=== PATIENT | female | born 1945 | race Two or more races ===

== ENCOUNTER 2024-12-18 16:00 | Inpatient (IN) | payer OTHER, SELFPAY ==
[2024-12-18 16:02] VITALS: BP 159/82; PULSE 127; RESP 16; TEMP 37.4; O2SAT 91
[2024-12-18 16:04] VITALS: BMI 27.3
--- NOTE | 2024-12-18 16:20 | EX.ED.DYSGE1 ---
HPI <DOM Welch - Last Filed: 12/18/24 18:14> History of Present Illness Chief Complaint: Abd Pain Narrative Narrative: 79-year-old female with no significant past medical history developed chills yesterday and a few hours ago developed a fever of 102 ?F, abdominal cramping, and nausea and vomiting x 1. She has been mildly constipated recently but is passing gas. She took Metamucil and Pepto-Bismol and had a small bowel movement this morning. She is here with her family and arrived to the [place] 1 [place] ago from [place]. She took an antipyretic called Crocin about 1 hour ago. She takes vitamins but no prescription medications. She has had umbilical hernia repair x 2, appendectomy, and hysterectomy. PFSH <DOM Welch - Last Filed: 12/18/24 18:14> PFS Medical History (Updated 12/18/24 @ 18:14 by DOM Welch) Hernia Allergy/AdvReac Type Severity Reaction Status Date / Time Penicillins Allergy Intermediate Rash Verified 12/18/24 16:02 Surgical History (Updated 12/18/24 @ 16:22 by Donna Garza) H/O: hysterectomy History of appendectomy Social History Smoking Status: Never smoker ROS <DOM Welch - Last Filed: 12/18/24 18:14> ROS ED ROS Narrative Constitutional: Positive for fever, chills, malaise. CVS: Negative for chest pain. Respiratory: Negative for shortness of breath, cough. GI: Positive for abdominal pain, nausea, vomiting, constipation. : Negative for dysuria, hematuria or frequency. EXAM <DOM Welch - Last Filed: 12/18/24 18:14> Physical Exam Narrative Exam Narrative: CONST: Patient sitting in no acute distress. EYES: Normal inspection. NECK: Normal inspection. RESP: No respiratory distress, CTAB. CVS: Tachycardic with regular rhythm, no murmur, no gallop. ABD: Soft with generalized tenderness and guarding, nondistended, no hepatosplenomegaly. SKIN: Color normal, no rash, warm, dry, intact. EXTREMITIES: Normal appearance, no pedal edema. NEURO: Alert and answering questions appropriately. PSYCH: Normal affect. Const Vital Signs: 12/18/24 16:02 12/18/24 17:34 Temperature 99.3 F H 101.2 F H Temperature Source Temporal Oral Pulse Rate 127 H 126 H Respiratory Rate 16 20 H Blood Pressure 159/82 H 151/76 H Blood Pressure Mean 107 101 Pulse Ox 91 Oxygen Delivery Method Room Air Room Air <Dr. Librado Perez DO - Last Filed: 12/18/24 18:31> Physical Exam Const Vital Signs: 12/18/24 16:02 12/18/24 17:34 Temperature 99.3 F H 101.2 F H Temperature Source Temporal Oral Pulse Rate 127 H 126 H Respiratory Rate 16 20 H Blood Pressure 159/82 H 151/76 H Blood Pressure Mean 107 101 Pulse Ox 91 Oxygen Delivery Method Room Air Room Air MDM <DOM Welch - Last Filed: 12/18/24 18:14> [facility] Narrative Medical decision making narrative: History gathered from: Patient and her son and [id number] Differential includes but not limited to diverticulitis, abscess, perforation, cholecystitis, UTI, viral illness 79-year-old female presents with fever, chills, abdominal pain, nausea and vomiting, and constipation over the last day. She appears well and nontoxic. BP 159/82, HR 127, RR 16, 91% on room air, and temperature of 99.3 ?F. She took a Tylenol equivalent antipyretic about an hour ago. Her cardiopulmonary exam is unremarkable except for tachycardia. Abdomen is soft with generalized tenderness without peritoneal signs. Labs show WBC of 13.0, sodium 131, glucose 207, normal CO2 and anion gap. Liver profile and lipase are normal. Lactic 1.5. CT shows acute uncomplicated sigmoid diverticulitis. CXR and viral swab for COVID/flu/RSV is negative. Initially she was given IV fluids, morphine, and Zofran Bright disease she had taken a Tylenol equivalent prior to arrival for fever). She became febrile again and is still tachycardic in the 120s so I ordered a second liter of IV fluids and Motrin. She clinically meet sepsis criteria. I discussed the case with the hospitalist and he recommended IV meropenem. Patient was admitted in stable condition. Lab Data Attestation: I reviewed the patient's lab results. Labs: Laboratory Results - last 24 hr 12/18/24 12/18/24 16:37 17:55 WBC 13.0 H RBC 5.29 Hgb 13.5 Hct 40.3 MCV 76.2 L MCH 25.5 L MCHC 33.5 RDW Std Deviation 38.8 RDW Coeff of Farzaneh 14.0 Plt Count 234 MPV 9.0 Immature Gran % (Auto) 0.500 Neut % (Auto) 87.4 H Lymph % (Auto) 8.5 L [place] % (Auto) 3.2 Eos % (Auto) 0.2 Baso % (Auto) 0.2 Absolute Neuts (auto) 11.3 H Absolute Lymphs (auto) 1.10 Nucleated RBC % 0 Sodium 131 L Potassium 4.3 Chloride 97 L Carbon Dioxide 21.1 Anion Gap 13 BUN 8 Creatinine 0.69 L Estim Creat Clear Calc 45.85 L Est GFR (MDRD) Non-Af 87 BUN/Creatinine Ratio 12.0 Glucose 207 H Lactic Acid 1.5 Calcium 9.3 Total Bilirubin 0.61 AST 24 ALT 15 Alkaline Phosphatase 87 Total Protein 7.6 Albumin 4.2 Globulin 3.4 Albumin/Globulin Ratio 1.2 Lipase 15 Urine Color Yellow Urine Clarity Sl. Cloudy Urine pH 7.0 Ur Specific [place] 1.005 Urine Protein 15 H Urine Glucose (UA) 250 H Urine Ketones Negative Urine Occult Blood 10 H Urine Nitrite Negative Urine Bilirubin Negative Urine Urobilinogen Normal Ur Leukocyte Esterase Negative Urine RBC 0-5 SEEN Urine WBC 0 SEEN Ur Squamous Epith Cells 0-5 SEEN Amorphous Sediment 1+ PHOS Urine Bacteria 0 SEEN Urine Mucus 0 SEEN Radiography Diagnostic Testing: Clinical Impression(s) from Imaging Studies Abdomen/Pelvis CT 12/18/24 16:55 IMPRESSION: Acute sigmoid diverticulitis, without pneumoperitoneum or drainable fluid collection. Reading Location: [facility] Chest X-Ray 12/18/24 16:55 IMPRESSION: No Acute Findings. Reading Location: [facility] ED attending interpretation of 1-view chest x-ray shows normal heart size, no acute infiltrate. <Dr. Librado Perez, DO - Last Filed: 12/18/24 18:31> MDM MDM Narrative Medical decision making narrative: History gathered from: Patient and her son and [id number] Differential includes but not limited to diverticulitis, abscess, perforation, cholecystitis, UTI, viral illness 79-year-old female presents with fever, chills, abdominal pain, nausea and vomiting, and constipation over the last day. She appears well and nontoxic. BP 159/82, HR 127, RR 16, 91% on room air, and temperature of 99.3 ?F. She took a Tylenol equivalent antipyretic about an hour ago. Her cardiopulmonary exam is unremarkable except for tachycardia. Abdomen is soft with generalized tenderness without peritoneal signs. Labs show WBC of 13.0, sodium 131, glucose 207, normal CO2 and anion gap. Liver profile and lipase are normal. Lactic 1.5. CT shows acute uncomplicated sigmoid diverticulitis. CXR and viral swab for COVID/flu/RSV is negative. Initially she was given IV fluids, morphine, and Zofran Bright disease she had taken a Tylenol equivalent prior to arrival for fever). She became febrile again and is still tachycardic in the 120s so I ordered a second liter of IV fluids and Motrin. She clinically meet sepsis criteria. I discussed the case with the hospitalist and he recommended IV meropenem. Patient was admitted in stable condition. Supervisory Physician Note Patient was seen and examined with the Advanced Practice Provider. Nursing notes and vital signs have been reviewed. Pertinent old records have been reviewed. I agree with the essential elements of the NIGEL's history, physical exam, assessment, and plan. The differential diagnosis and management options were discussed with the NIGEL. I participated in determining and agree with the management, procedures, final impression and disposition as documented. See changes noted by me. Please see addendum or separate note for any additional details. 79-year-old female with no significant past medical history presents for evaluation of flulike symptoms and abdominal pain. Onset of symptoms approximately 2 days ago. Endorses fever, body aches, abdominal pain, nausea, vomiting. Endorses constipation but states that she did have a recent bowel movement after bowel regiment. Originally from [place]. Previous history of surgeries. Gen: A&O x3, NAD Head: Normocephalic, atraumatic Eyes: No sclera icterus, conjunctiva clear ENT: Mildly dry mucous membranes Neck: Trachea midline, No JVD CV: tachycardic, regular rhythm, no murmurs, no peripheral edema Resp: Lungs CTA BL, no w/r/c GI: Abd soft, mildly distended, mild tenderness to palpation diffusely, no r/r/g Musc: Full ROM, no deformity Skin: Warm, dry Neuro: Alert, oriented, grossly intact, sensation intact Psych: Cooperative, appropriate mood and affect On arrival, patient is hypertensive, tachycardic, almost febrile at 99.3 ?F. She did just take an antipyretic. Sepsis/infectious workup ordered including CT abdomen pelvis. NS bolus, morphine, Zofran ordered. CBC with leukocytosis of 13. No anemia. CMP consistent with dehydration without ROMEL. Patient has hyperglycemia of 207. Patient not a diabetic. Lactic acid unremarkable. No transaminitis. Lipase unremarkable. UA negative for UTI. Patient now febrile at 101.2 ?F. She remains tachycardic in the 120s. Motrin and another NS bolus ordered. Chest x-ray was personally reviewed interpreted by me, ED physician. No pneumonia, effusion, cardiomegaly, pneumothorax. CT abdomen pelvis shows acute sigmoid diverticulitis without pneumoperitoneum or drainable abscess. Levaquin and Flagyl ordered. COVID, flu, RSV negative. Despite patient having uncomplicated diverticulitis, I do think that she will require admission given her vital signs and abdominal pain. Patient was discussed with the hospitalist, patient will be admitted. Recommended meropenem, antibiotics were changed. Patient will be admitted to the hospital. Impression: 1. Sigmoid diverticulitis 2. Fever 3. Hyperglycemia Lab Data Labs: Laboratory Results - last 24 hr 12/18/24 12/18/24 16:37 17:55 WBC 13.0 H RBC 5.29 Hgb 13.5 Hct 40.3 MCV 76.2 L MCH 25.5 L MCHC 33.5 RDW Std Deviation 38.8 RDW Coeff of [place]zaneh 14.0 Plt Count 234 MPV 9.0 Immature Gran % (Auto) 0.500 Neut % (Auto) 87.4 H Lymph % (Auto) 8.5 L [place] % (Auto) 3.2 Eos % (Auto) 0.2 Baso % (Auto) 0.2 Absolute Neuts (auto) 11.3 H Absolute Lymphs (auto) 1.10 Nucleated RBC % 0 Sodium 131 L Potassium 4.3 Chloride 97 L Carbon Dioxide 21.1 Anion Gap 13 BUN 8 Creatinine 0.69 L Estim Creat Clear Calc 45.85 L Est GFR (MDRD) Non-Af 87 BUN/Creatinine Ratio 12.0 Glucose 207 H Lactic Acid 1.5 Calcium 9.3 Total Bilirubin 0.61 AST 24 ALT 15 Alkaline Phosphatase 87 Total Protein 7.6 Albumin 4.2 Globulin 3.4 Albumin/Globulin Ratio 1.2 Lipase 15 Urine Color Yellow Urine Clarity Sl. Cloudy Urine pH 7.0 Ur Specific [place] 1.005 Urine Protein 15 H Urine Glucose (UA) 250 H Urine Ketones Negative Urine Occult Blood 10 H Urine Nitrite Negative Urine Bilirubin Negative Urine Urobilinogen Normal Ur Leukocyte Esterase Negative Urine RBC 0-5 SEEN Urine WBC 0 SEEN Ur Squamous Epith Cells 0-5 SEEN Amorphous Sediment 1+ PHOS Urine Bacteria 0 SEEN Urine Mucus 0 SEEN Radiography Diagnostic Testing: Clinical Impression(s) from Imaging Studies Abdomen/Pelvis CT 12/18/24 16:55 IMPRESSION: Acute sigmoid diverticulitis, without pneumoperitoneum or drainable fluid collection. Reading Location: [facility] Chest X-Ray 12/18/24 16:55 IMPRESSION: No Acute Findings. Reading Location: [facility] Discharge Plan Triage Chief Complaint: Abd Pain ED Midlevel Provider: Solange Greenfield ED Provider: Librado Perez Dx/Rx/DC Orders Clinical Impression: Sigmoid diverticulitis, Fever Primary Care Provider: Care Physician,No Primary
[2024-12-18] MEDS: Morphine 4 MG/ML Syringe IV (16:34)
[2024-12-18] MEDS: Ondansetron 4 MG/2 ML Vial IV (16:34)
[2024-12-18] MEDS: 0.9% Normal Saline (1000mL) 1,000 ML 999 ML IV ×2 (16:36→20:01)
--- NOTE | 2024-12-18 16:55 | RAD_ITS ---
PROCEDURE: CHEST 1 VIEW (PORTABLE) 12/18/2024 REASON FOR EXAM: FEVER TECHNIQUE: Frontal view of the chest. COMPARISON: None FINDINGS: Hardware: None Heart: Cardiac and mediastinal contours are stable. Lungs: No focal consolidation. No pneumothorax. No pleural effusion. Bones: The bones are unremarkable. Other: RAD/Chest 1 View (Portable) IMPRESSION: No Acute Findings. Reading Location: [facility]
--- NOTE | 2024-12-18 16:55 | CT_ITS ---
PROCEDURE: ABDOMEN/PELVIS W IV CONT ONLY 12/18/2024 REASON FOR EXAM: ABDOMINAL PAIN TECHNIQUE: Abdomen and pelvis CT with intravenous contrast. Coronal and Sagittal reconstruction series were provided. PATIENT PREPARATION: Per protocol ORAL CONTRAST TYPE: None. AMOUNT: mL CONTRAST: Omnipaque 350 VOLUME: 100 mL Not Provided Gauge IV One or more dose reduction techniques were used (e.g., Automated exposure control, adjustment of the mA and/or kV according to patient size, use of iterative reconstruction technique. COMPARISON: None FINDINGS: Lung bases: Mild bibasilar atelectasis. Liver: Mild hepatic steatosis. No focal lesion. Gallbladder: No ductal dilation. No cholelithiasis or wall thickening. Spleen: Normal size. Pancreas: Normal size without evidence of mass surrounding inflammation or ductal dilation. Adrenals: Mild bilateral adrenal thickening. Kidneys: Normal renal sizes. No hydronephrosis. Bladder: Urinary bladder is unremarkable. Reproductive Organs: No pelvic mass. Bowel: Stomach is unremarkable. No bowel dilation. Colonic diverticulosis, with wall thickening, submucosal hyperemia and surrounding mesenteric soft tissue stranding and edema involving the sigmoid colon (series 601, image 63), compatible with acute sigmoid diverticulitis. No pneumoperitoneum or drainable fluid collection. Appendix: The appendix is not identified. There is no inflammatory process identified in the right lower quadrant to suggest appendicitis. Lymph nodes: No suspicious lymph node enlargement. Vasculature: The abdominal aorta and IVC are normal. Mild atherosclerotic calcification. Peritoneum / Retroperitoneum: No pneumoperitoneum. No ascites. Bones: Degenerative changes of the spine. Moderate scoliosis. CT/Abdomen/Pelvis W IV Cont ONLY IMPRESSION: Acute sigmoid diverticulitis, without pneumoperitoneum or drainable fluid colle ction. Reading [facility]
[2024-12-18 17:11] LABS: Absolute Neutrophil Count 11.3 X10^3/uL (2.0-7.7); Basophil# 0.03 X10^3/uL; Basophil% 0.2 % (0-1); Eosinophil# 0.03 X10^3/uL; Eosinophils% 0.2 % (0-5); Hematocrit 40.3 % (37-47); Hemoglobin 13.5 g/dL (12.0-15.0); Lymphocyte % 8.5 % (19-41); Mean Corp Hgb Conc 33.5 g/dL (32-36); Mean Corpuscular Hgb 25.5 pg (27.0-32.0); Mean Corpuscular Volume 76.2 fL (81-99); Monocyte# 0.41 X10^3/uL; Monocyte% 3.2 % (0-10); NRBC Flagged by Analyzer 0 % (0-5); Neutrophil # 11.34 X10^3/uL (2.7-7.7); Neutrophil % 87.4 % (47-70); Platelet Count 234 K/mm3 (150-450); RBC Distribution Width SD 38.8 fl (35.1-43.9); Red Blood Count 5.29 M/mm3 (4.2-5.4)
[2024-12-18 17:33] LABS: ALB/GLOB Ratio 1.2 RATIO (0.9-2.4); AST(SGOT) 24 U/L (<=31); Alanine Aminotransfer ALT/SGPT 15 U/L (<=34); Albumin, Serum 4.2 g/dL (3.4-4.8); Alkaline Phosphatase 87 U/L (35-104); Anion Gap 13 (5-15); BUN 8 mg/dL (4-19); Calcium,Total 9.3 mg/dL (7.6-11.0); Carbon Dioxide 21.1 mmol/L (21.0-32.0); Chloride 97 mmol/L (98-108); Creatinine, Serum 0.69 mg/dL (0.70-1.20); EST Glomerular Filtration Rate 87 (>60); Estimated Creatinine Clearance 45.85 ml/min (50-250); Globulin 3.4 g/dL (2.2-4.2); Glucose 207 mg/dL (70-99); Lactic Acid 1.5 mmol/L (0.0-2.0); Lipase 15 U/L (13-75); Potassium 4.3 mmol/L (3.3-5.1); Protein, Total 7.6 g/dL (5.9-8.4); Sodium Level 131 mmol/L (133-145); Total Bilirubin 0.61 mg/dL (0.00-1.30)
[2024-12-18 17:34] VITALS: BP 151/76; PULSE 126; RESP 20; TEMP 38.4
[2024-12-18] MEDS: Ibuprofen 200 MG Tablet 400 MG PO (17:41)
[2024-12-18 18:06] LABS: Bacteria 0 SEEN /hpf (None Seen); Mucous, Urine 0 SEEN /hpf (<or=2+); White Blood Cells 0 SEEN /hpf (0-5)
[2024-12-18 18:09] LABS: Color, Urine Yellow (Yellow); Glucose, Dipstick 250 mg/dl (Normal); Ketone-Dipstick Negative (Negative); Leukocyte Esterase-Dipstick Negative /ul (Negative); Nitrite-Dipstick Negative (Negative); Occult Blood-Urine 10 /ul (Negative); Protein-Dipstick 15 mg/dl (Negative); Specific Gravity, Urine 1.005 (1.002-1.030); Urine Bilirubin Dipstick Negative (Negative); Urine Clarity Sl. Cloudy (Clear); Urine Urobilinogen Normal (Normal)
[2024-12-18] MEDS: metroNIDAZOLE 500 MG/100 ML BAG 100 MG IV (18:10)
[2024-12-18 18:16] LABS: Amorphous Sediment 1+ PHOS; Red Blood Cells-Urine 0-5 SEEN /hpf (0-5); Squamous Epithelial Cells - UA 0-5 SEEN /hpf (5-10)
--- NOTE | 2024-12-18 18:22 | HP.PCM.HOS_ITS ---
HPI - General General Date of Admission: 12/18/24 Date of Service: 12/18/24 Chief Complaint: Left lower abdominal pain x 2 days HPI Rosie BENDER, is a 79 F who presents to the emergency room at [facility] with complaints of left lower quadrant abdominal pain x 1 day. She denies any blood in her stool, she denies any diarrhea. Patient did endorse nausea and vomiting and fever. Labs obtained in the emergency room showed an elevated white blood cell count at 13,000, chemistry profile was remarkable for glucose of 207, sodium was slightly low at 131. Imaging studies included a chest x-ray which showed no acute process. CT of the abdomen and pelvis was obtained with IV contrast only there was noted to be acute sigmoid diverticulitis without pneumoperitoneum or drainable fluid collection. Patient was tachycardic and was running a temperature of 101.2 Patient will be admitted for acute diverticulitis, she will be given IV fluids and IV antibiotics-I have elected to place her on meropenem, she was given Flagyl and Levaquin in the emergency room. [facility] Medical History (Updated 12/18/24 @ 18:14 by DOM eWlch) Hernia Allergy/AdvReac Type Severity Reaction Status Date / Time Penicillins Allergy Intermediate Rash Verified 12/18/24 16:02 Surgical History (Updated 12/18/24 @ 16:22 by Donna Garza) H/O: hysterectomy History of appendectomy Social History Smoking Status: Never smoker ROS Constitutional Constitutional: Reports fever(s); Denies anorexia, change in weight, chills, night sweats or weakness Eyes Eyes: Denies blurry vision, change in eye color, change in vision, discharge from eye(s) or eye pain Cardiovascular Cardiovascular: Denies chest pain, claudication, dyspnea on exertion, edema or palpitations Respiratory/Chest Respiratory/Chest: Denies cough, hemoptysis, shortness of breath at rest or shortness of breath with exertion Gastrointestinal Gastrointestinal: Reports abdominal pain, nausea and vomiting; Denies constipation, diarrhea, dyspepsia, hematemesis, hematochezia, loose stools or melena Genitourinary Genitourinary: Denies dysuria, hematuria, urinary frequency, urinary hesitancy, urinary incontinence or urinary urgency Musculoskeletal Musculoskeletal: Denies back pain, joint pain, joint stiffness, joint swelling, myalgias or neck pain Neurologic Neurologic: Denies abnormal gait, abnormal speech, dizziness, focal weakness, headache(s), loss of vision, numbness, other visual disturbances, paresthesias, syncope or tingling Psychiatric Psychiatric: Denies anxiety, cognitive impairment, depression, irritability, mood swings or suicidal ideation Endocrine Endocrinology: Denies change in body appearance, cold intolerance, excessive sweating, heat intolerance, polydipsia or polyuria Hematologic/Lymphatic Hematologic/Lymphatic: Denies none, anemia, easy bleeding, easy bruising or lymphadenopathy Allergic/Immunologic Allergic/Immunologic: Denies rhinitis, urticaria, eczemia or asthma Vital Signs Vital Signs Vital Signs: 12/18/24 16:02 12/18/24 17:34 Temperature 99.3 F H 101.2 F H Temperature Source Temporal Oral Pulse Rate 127 H 126 H Respiratory Rate 16 20 H Blood Pressure 159/82 H 151/76 H Blood Pressure Mean 107 101 Pulse Ox 91 Oxygen Delivery Method Room Air Room Air Weight Weight: 63.4 kg Body Mass Index (BMI) 27.3 Physical Exam Const alert, oriented x3 and healthy appearing Constitutional Narrative: Patient appears younger than her stated age, she did not appear toxic General Appearance: cooperative, well kempt and well developed Orientation / Consciousness: awake, oriented to person, oriented to place and oriented to time HEENT normocephalic, head/scalp atraumatic and moist oral mucous membranes Eyes PERRL, EOMs intact bilaterally and conjunctivae normal Neck supple, no JVD, thyroid normal and no carotid bruits General: trachea midline Resp normal respiratory effort, no retractions, no use of accessory muscles and clear to auscultation bilaterally Auscultation: Negative for rales, rhonchi or wheezes Cardio regular rate, regular rhythm, no murmurs, no rub and no gallops GI GI Narrative: Abdomen is not distended, bowel sounds are present in all 4 quadrants, no rebound abdominal tenderness was noted, patient did have left lower quadrant abdominal pain to palpation. Extremity no clubbing, cyanosis or edema Skin no rashes or lesions noted General Skin Exam: no breakdown Neuro oriented x3, CN's II-XII intact bilaterally, moves all extremities, no focal motor deficits and no sensory deficits noted Sensorium / Orientation: awake and alert Speech: speech normal Psych affect normal Results Lab / Micro Data 12/18/24 16:37 12/18/24 16:37 Labs: Laboratory Results - last 24 hr 12/18/24 16:37: WBC 13.0 H, RBC 5.29, Hgb 13.5, Hct 40.3, MCV 76.2 L, MCH 25.5 L , MCHC 33.5, RDW Std Deviation 38.8, RDW Coeff of Farzaneh 14.0, Plt Count 234, MPV 9.0, Immature Gran % (Auto) 0.500, Neut % (Auto) 87.4 H, Lymph % (Auto) 8.5 L, [place] % (Auto) 3.2, Eos % (Auto) 0.2, Baso % (Auto) 0.2, Absolute Neuts (auto) 11.3 H, Absolute Lymphs (auto) 1.10, Nucleated RBC % 0, Sodium 131 L, Potassium 4.3, Chloride 97 L, Carbon Dioxide 21.1, Anion Gap 13, BUN 8, Creatinine 0.69 L, Estim Creat Clear Calc 45.85 L, Est GFR (MDRD) Non-Af 87, BUN/Creatinine Ratio 12.0, Glucose 207 H, Lactic Acid 1.5, Calcium 9.3, Total Bilirubin 0.61, AST 24, ALT 15, Alkaline Phosphatase 87, Total Protein 7.6, Albumin 4.2, Globulin 3.4, Albumin/Globulin Ratio 1.2, Lipase 15 12/18/24 17:55: Urine Color Yellow, Urine Clarity Sl. Cloudy, Urine pH 7.0, Ur Specific [place] 1.005, Urine Protein 15 H, Urine Glucose (UA) 250 H, Urine Ketones Negative, Urine Occult Blood 10 H, Urine Nitrite Negative, Urine Bilirubin Negative, Urine Urobilinogen Normal, Ur Leukocyte Esterase Negative, Urine RBC 0-5 SEEN, Urine WBC 0 SEEN, Ur Squamous Epith Cells 0-5 SEEN, Amorphous Sediment 1+ PHOS, Urine Bacteria 0 SEEN, Urine Mucus 0 SEEN Micro: Microbiology 12/18/24 16:25 Mucosa - Nose SARS-CoV-2, Influenza & RSV (PCR) - Final Imaging Radiology Impression Abdomen/Pelvis CT 12/18/24 16:55 IMPRESSION: Acute sigmoid diverticulitis, without pneumoperitoneum or drainable fluid collection. Reading Location: [facility] Chest X-Ray 12/18/24 16:55 IMPRESSION: No Acute Findings. Reading Location: [facility] Assessment & Plan Assessment/Plan (1) Sigmoid diverticulitis: PLAN: Plan 1. Acute sigmoid diverticulitis-I believe due to the patient's age and presentation that she would benefit from admission to the hospital and given IV fluids and IV antibiotics, patient will be admitted to [facility], she will be placed on IV meropenem and given IV fluids and she will be placed on liquids only for now. #2 hyperglycemia-etiology unclear, patient denies any medical problems and takes no prescription medications. I will repeat her labs in the morning. Total clinical time spent by myself addressing the patient's medical issues, reviewing all of her data, and collaborating with patient's care team: 55 minutes Charges/Coding Visit Charges Inpatient E&M: 18886 Init Hosp L2
[2024-12-18 19:01] VITALS: BP 150/80; PULSE 124; RESP 18; TEMP 38.3; O2SAT 96
[2024-12-18 19:32] VITALS: BMI 25.5
[2024-12-18 19:52] VITALS: BP 131/67; PULSE 122; RESP 16; TEMP 37.9; O2SAT 95
[2024-12-18] MEDS: 0.9% Normal Saline (1000mL) 1,000 ML 120 ML IV (21:13)
[2024-12-18] MEDS: Heparin Injection (Vial) 5,000 UNIT/ML VIAL 5000 UNIT SC (21:17)
[2024-12-18] MEDS: Meropenem 1 GM in 0.9% Normal Saline (100mL MB+) 100 ML IV (21:22)
[2024-12-19] VITALS (8 sets, daily range): BP systolic 99–126; BP diastolic 49–78; PULSE 90–109; RESP 16–18; TEMP 36.6–38.8; O2SAT 92–95
[2024-12-19] MEDS: 0.9% Normal Saline (1000mL) 1,000 ML 120 ML IV ×2 (04:51→12:33)
[2024-12-19 06:05] LABS: Absolute Lymphocyte Count 1.34 X10^3/uL (0.83-4.51); Absolute Neutrophil Count 10.4 X10^3/uL (2.0-7.7); Basophil# 0.04 X10^3/uL; Basophil% 0.3 % (0-1); Eosinophil# 0.03 X10^3/uL; Eosinophils% 0.2 % (0-5); Hematocrit 32.8 % (37-47); Hemoglobin 10.9 g/dL (12.0-15.0); Lymphocyte # 1.34 X10^3/ul (0.83-4.51); Mean Corp Hgb Conc 33.2 g/dL (32-36); Mean Corpuscular Hgb 25.5 pg (27.0-32.0); Mean Corpuscular Volume 76.6 fL (81-99); Mean Platelet Vol. 9.1 fl (6.2-12.0); Monocyte# 0.35 X10^3/uL; Monocyte% 2.9 % (0-10); NRBC Flagged by Analyzer 0 % (0-5); Neutrophil % 85.3 % (47-70); Platelet Count 194 K/mm3 (150-450); RBC Distribution Width CV 14.2 % (11.6-14.6); RBC Distribution Width SD 39.4 fl (35.1-43.9); Red Blood Count 4.28 M/mm3 (4.2-5.4); White Blood Count 12.2 K/mm3 (4.4-11.0)
--- NOTE | 2024-12-19 06:38 | PN.HOSP_ITS ---
Reason for Visit Reason for Visit: Abdominal pain Subjective Subjective Patient states she is feeling much better. Still having some abdominal pain. Tolerating clear liquids without difficulty however still having some low-grade temps. In the emergency department Tmax was 101. Since admission Tmax has been 100.7. Patient anxious to go home. Objective Data Objective Data Vital Signs: Vital Signs Temp Pulse Resp BP Pulse Ox O2 Del Method 98.3 F 93 16 114/64 94 Room Air 12/19/24 03:17 12/19/24 03:17 12/19/24 03:17 12/19/24 03:17 12/19/24 03:17 12/19/24 03:17 Oxygen Delivery Method Room Air Weight: 61.3 kg Body Mass Index (BMI) 25.5 Intake & Output: Intake and Output for Last 24 Hours 12/17/24 12/18/24 12/19/24 23:59 23:59 23:59 Intake Total 2100 / 2200 1136 / 1136 Balance 2100 / 2200 1136 / 1136 Lab / Micro Data 12/19/24 05:35 12/19/24 05:35 Labs: Laboratory Results - last 24 hr 12/18/24 16:37: WBC 13.0 H, RBC 5.29, Hgb 13.5, Hct 40.3, MCV 76.2 L, MCH 25.5 L , MCHC 33.5, RDW Std Deviation 38.8, RDW Coeff of Farzaneh 14.0, Plt Count 234, MPV 9.0, Immature Gran % (Auto) 0.500, Neut % (Auto) 87.4 H, Lymph % (Auto) 8.5 L, [place] % (Auto) 3.2, Eos % (Auto) 0.2, Baso % (Auto) 0.2, Absolute Neuts (auto) 11.3 H, Absolute Lymphs (auto) 1.10, Nucleated RBC % 0, Sodium 131 L, Potassium 4.3, Chloride 97 L, Carbon Dioxide 21.1, Anion Gap 13, BUN 8, Creatinine 0.69 L, Estim Creat Clear Calc 45.85 L, Est GFR (MDRD) Non-Af 87, BUN/Creatinine Ratio 12.0, Glucose 207 H, Lactic Acid 1.5, Calcium 9.3, Total Bilirubin 0.61, AST 24, ALT 15, Alkaline Phosphatase 87, Total Protein 7.6, Albumin 4.2, Globulin 3.4, Albumin/Globulin Ratio 1.2, Lipase 15 12/18/24 17:55: Urine Color Yellow, Urine Clarity Sl. Cloudy, Urine pH 7.0, Ur Specific [place] 1.005, Urine Protein 15 H, Urine Glucose (UA) 250 H, Urine Ketones Negative, Urine Occult Blood 10 H, Urine Nitrite Negative, Urine Bilirubin Negative, Urine Urobilinogen Normal, Ur Leukocyte Esterase Negative, Urine RBC 0-5 SEEN, Urine WBC 0 SEEN, Ur Squamous Epith Cells 0-5 SEEN, Amorphous Sediment 1+ PHOS, Urine Bacteria 0 SEEN, Urine Mucus 0 SEEN 12/19/24 05:35: WBC 12.2 H, RBC 4.28, Hgb 10.9 L, Hct 32.8 L, MCV 76.6 L, MCH 25.5 L, MCHC 33.2, RDW Std Deviation 39.4, RDW Coeff of Farzaneh 14.2, Plt Count 194, MPV 9.1, Immature Gran % (Auto) 0.300, Neut % (Auto) 85.3 H, Lymph % (Auto) 11.0 L, [place] % (Auto) 2.9, Eos % (Auto) 0.2, Baso % (Auto) 0.3, Absolute Neuts (auto) 10.4 H, Absolute Lymphs (auto) 1.34, Nucleated RBC % 0 Micro: Microbiology 12/18/24 16:25 Mucosa - Nose SARS-CoV-2, Influenza & RSV (PCR) - Final Radiography Diagnostic Testing: Radiology Impression Abdomen/Pelvis CT 12/18/24 16:55 IMPRESSION: Acute sigmoid diverticulitis, without pneumoperitoneum or drainable fluid collection. Reading Location: [facility] Chest X-Ray 12/18/24 16:55 IMPRESSION: No Acute Findings. Reading Location: [facility] Physical Exam Const alert, oriented x3, no apparent distress, average body habitus and well nourished Constitutional Narrative: Older, , female, lying in bed, appears comfortable, son at bedside, nontoxic appearing HEENT head/scalp atraumatic and moist oral mucous membranes Head and Scalp: normocephalic Resp normal respiratory effort, no retractions, no use of accessory muscles and clear to auscultation bilaterally Auscultation: Negative for crackles, rales, rhonchi or wheezes Cardio regular rate, regular rhythm, S1 normal heart sound, S2 normal heart sound, no rub and no gallops; Negative for no murmurs Cardio Narrative: 2 out of 6 systolic murmur loudest the right upper sternal border GI normal to inspection, nondistended, normoactive bowel sounds and soft to palpation; Negative for non-tender GI Narrative: Tender left lower quadrant greater than right lower quadrant but tenderness extends across the entire lower abdomen Extremity no clubbing, cyanosis or edema Extremity Narrative: Pedal and radial pulses are 2+ Neuro oriented x3, moves all extremities and no focal motor deficits Speech: speech normal Psych Psych Narrative: Very pleasant, gracious for care Assessment & Plan Assessment/Plan (1) Fever: (2) Sigmoid diverticulitis: PLAN: Plan Acute sigmoid diverticulitis -Continue IV fluids but decrease rate to 75 cc/h from 120 -continue IV antibiotics with meropenem as patient has penicillin allergy -Would likely consider Cipro Flagyl discharge -Continue IV antiemetics -Continue IV pain medication -Continue clear liquid diet today with possible advancement depending on symptoms tomorrow to full's and then regular -No signs of perforation or abscess Fever -Secondary to the above -Fever curve appears to be improving Tachycardia -Mild -Like related to interface temperature Leukocytosis -Slowly trending down -Continue current antibiotics Microcytic anemia -Baseline is unknown -Was 13.5 on admission but has received IV fluids and currently 10.9 with no signs of obvious bleeding -His microcytic -If stabilizes would not pursue as an inpatient any further if does not may need to assess iron studies -Patient would be high risk for thalassemia Hyperglycemia -Blood sugars 181 -May be reactive -Check hemoglobin A1c -Add sliding scale every 6 hours DVT prophylaxis -Continue subcu heparin CODE STATUS -Full code verified today Charges/Coding Visit Charges Inpatient E&M: 46073 Subs Hosp L2
[2024-12-19 07:17] LABS: Anion Gap 9 (5-15); BUN 8 mg/dL (4-19); Calcium,Total 7.9 mg/dL (7.6-11.0); Carbon Dioxide 18.8 mmol/L (21.0-32.0); Chloride 109 mmol/L (98-108); EST Glomerular Filtration Rate 90 (>60); Estimated Creatinine Clearance 46.32 ml/min (50-250); Glucose 181 mg/dL (70-99); Potassium 3.8 mmol/L (3.3-5.1); Sodium Level 137 mmol/L (133-145)
[2024-12-19] MEDS: Meropenem 1 GM in 0.9% Normal Saline (100mL MB+) 100 ML IV ×2 (09:51→21:00)
[2024-12-19] MEDS: Heparin Injection (Vial) 5,000 UNIT/ML VIAL 5000 UNIT SC ×2 (09:53→20:59)
[2024-12-19] MEDS: Acetaminophen 325 MG Tablet 650 MG PO ×2 (10:47→21:00)
[2024-12-19 14:46] LABS: Hemoglobin A1c 7.6 % (<=5.6)
[2024-12-19 17:42] LABS: Bedside Glucose 147 mg/dL (74-106)
[2024-12-19] MEDS: 0.9% Normal Saline (1000mL) 1,000 ML 75 ML IV (22:24)
--- NOTE | 2024-12-19 23:15 | NURSING ---
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 Pharmacy has been notified as well as the operative supervisor. They have been unable to obtain access for this nurse. Other nurses have been helping pull medications.
[2024-12-20] VITALS (8 sets, daily range): BP systolic 132–163; BP diastolic 62–75; PULSE 101–125; RESP 16–22; TEMP 36.8–39.3; O2SAT 91–97
[2024-12-20 00:26] LABS: Bedside Glucose 139 mg/dL (74-106)
--- NOTE | 2024-12-20 02:40 | RAD_ITS ---
PROCEDURE: CHEST 1 VIEW (PORTABLE) 12/20/2024 REASON FOR EXAM: SHORTNESS OF BREATH TECHNIQUE: Frontal view of the chest. COMPARISON: 12/18/2024 FINDINGS: Patient is rotated to the right. Low lung volume study. The lungs appear clear. The cardiac and mediastinal contours appear within limits. Visualized osseous structures appear within limits. RAD/Chest 1 View (Portable) IMPRESSION: No evidence of acute disease. Reading Location: [id number]
[2024-12-20 02:59] LABS: Pro- Brain NATRIURETIC PEPTIDE 1851 pg/mL (<=1800)
[2024-12-20 03:01] LABS: Anion Gap 11 (5-15); BUN 6 mg/dL (4-19); BUN/Creat Ratio 9.3 RATIO (10-20); Calcium,Total 8.3 mg/dL (7.6-11.0); Carbon Dioxide 20.1 mmol/L (21.0-32.0); Chloride 103 mmol/L (98-108); Creatinine, Serum 0.62 mg/dL (0.70-1.20); EST Glomerular Filtration Rate 89 (>60); Estimated Creatinine Clearance 46.32 ml/min (50-250); Glucose 154 mg/dL (70-99); Potassium 3.8 mmol/L (3.3-5.1); Sodium Level 135 mmol/L (133-145)
[2024-12-20 03:25] LABS: Allen Test Positive; Base Excess -6 mmol/L (-2 to +2); Bicarbonate 18.7 mmol/L (22-26); Blood Gas Specimen Type ART; Mode Not entered; O2 Delivery Device Cannula; PO2 75 mmHG (75-100); SITE R Radial; SO2 96 % (95-99); Total Carbon Dioxide 20 mmol/L; pCO2 28.1 mmHg (35-45); pH 7.43 (7.35-7.45)
[2024-12-20] MEDS: Furosemide 20 MG/2 ML VIAL IV (03:45)
[2024-12-20 06:09] LABS: Bedside Glucose 157 mg/dL (74-106)
[2024-12-20 06:15] LABS: Absolute Lymphocyte Count 0.77 X10^3/uL (0.83-4.51); Basophil# 0.04 X10^3/uL; Basophil% 0.4 % (0-1); Eosinophil# 0.02 X10^3/uL; Eosinophils% 0.2 % (0-5); Hematocrit 34.7 % (37-47); Hemoglobin 11.7 g/dL (12.0-15.0); Lymphocyte # 0.77 X10^3/ul (0.83-4.51); Lymphocyte % 7.5 % (19-41); Mean Corp Hgb Conc 33.7 g/dL (32-36); Mean Corpuscular Hgb 25.4 pg (27.0-32.0); Mean Corpuscular Volume 75.3 fL (81-99); Mean Platelet Vol. 9.3 fl (6.2-12.0); Monocyte# 0.36 X10^3/uL; Monocyte% 3.5 % (0-10); NRBC Flagged by Analyzer 0 % (0-5); Neutrophil # 8.97 X10^3/uL (2.7-7.7); Platelet Count 215 K/mm3 (150-450); RBC Distribution Width CV 14.3 % (11.6-14.6); RBC Distribution Width SD 38.3 fl (35.1-43.9); Red Blood Count 4.61 M/mm3 (4.2-5.4); White Blood Count 10.2 K/mm3 (4.4-11.0)
[2024-12-20 06:41] LABS: Anion Gap 12 (5-15); BUN 6 mg/dL (4-19); BUN/Creat Ratio 9.5 RATIO (10-20); Calcium,Total 8.5 mg/dL (7.6-11.0); Carbon Dioxide 19.7 mmol/L (21.0-32.0); Chloride 99 mmol/L (98-108); Creatinine, Serum 0.62 mg/dL (0.70-1.20); EST Glomerular Filtration Rate 89 (>60); Estimated Creatinine Clearance 46.32 ml/min (50-250); Glucose 159 mg/dL (70-99); Magnesium 1.9 mg/dL (1.5-2.2); Phosphorus 1.4 mg/dL (2.7-4.5); Potassium 3.5 mmol/L (3.3-5.1); Sodium Level 131 mmol/L (133-145)
--- NOTE | 2024-12-20 06:44 | PCM.HOSP.N ---
Hospitalist Note Last night I was contacted by med-surgical instrument repair specialist and informed patient was having worsening shortness of breath and coarse breath sounds on examination. She underwent CXR which showed no acute findings but her NT pro-BNP II was elevated at 1,851 pg/mL consistent with iatrogenic volume overload/CHF. She was treated with 20 mg of Lasix IV once and her IV fluids were discontinued. She also was noted to have severe hypophosphatemia of 1.4 mg/dL so she was treated with 40 mmol of IV potassium phosphate.
[2024-12-20] MEDS: Heparin Injection (Vial) 5,000 UNIT/ML VIAL 5000 UNIT SC ×2 (08:39→21:42)
[2024-12-20] MEDS: Potassium Phosphate 40 MM in 0.9% Normal Saline (500mL Bag) 500 ML 62.5 MM IV (08:40)
--- NOTE | 2024-12-20 10:20 | PCM.PN.HOSP ---
Reason for Visit Reason for Visit: Diagnoses Diverticulitis of large intestine without perforation or abscess without bleeding (12/18/24) Fever, unspecified (12/18/24) Subjective Subjective Patient is an 79-year-old female who presented with fever abdominal problems and nausea and vomiting. CT of the abdomen and pelvis obtained on admission demonstrated acute sigmoid diverticulitis. Admitted to regular nursing floor where patient is currently being managed Objective Data Objective Data Vital Signs: Vital Signs Temp Pulse Resp BP Pulse Ox O2 Del Method O2 Flow Rate 100.4 F H 110 H 16 138/62 H 94 Room Air 2 12/20/24 08:00 12/20/24 08:00 12/20/24 08:00 12/20/24 08:00 12/20/24 08:00 12/20/24 08:00 12/20/24 02:00 Oxygen Flow Rate (L/min) 2 Oxygen Delivery Method Room Air Weight: 61.3 kg Body Mass Index (BMI) 25.5 Intake & Output: Intake and Output for Last 24 Hours 12/18/24 12/19/24 12/20/24 23:59 23:59 23:59 Intake Total 2100 / 2200 3501.25 / 3501.25 415 / 415 Balance 2100 / 2200 3501.25 / 3501.25 415 / 415 Lab / Micro Data 12/20/24 05:45 12/20/24 05:45 Labs: Laboratory Results - last 24 hr 12/19/24 05:35: Hemoglobin A1c 7.6 H 12/19/24 17:24: POC Glucose 147 H 12/20/24 00:07: POC Glucose 139 H 12/20/24 02:34: Sodium 135, Potassium 3.8, Chloride 103, Carbon Dioxide 20.1 L, Anion Gap 11, BUN 6, Creatinine 0.62 L, Estim Creat Clear Calc 46.32 L, Est GFR (MDRD) Non-Af 89, BUN/Creatinine Ratio 9.3 L, Glucose 154 H, Calcium 8.3, NT pro BNP II 1851 H 12/20/24 05:45: WBC 10.2, RBC 4.61, Hgb 11.7 L, Hct 34.7 L, MCV 75.3 L, MCH 25.4 L, MCHC 33.7, RDW Std Deviation 38.3, RDW Coeff of Farzaneh 14.3, Plt Count 215, MPV 9.3, Immature Gran % (Auto) 0.400, Neut % (Auto) 88.0 H, Lymph % (Auto) 7.5 L, [place] % (Auto) 3.5, Eos % (Auto) 0.2, Baso % (Auto) 0.4, Absolute Neuts (auto) 9.0 H, Absolute Lymphs (auto) 0.77 L, Nucleated RBC % 0, Sodium 131 L, Potassium 3.5, Chloride 99, Carbon Dioxide 19.7 L, Anion Gap 12, BUN 6, Creatinine 0.62 L, Estim Creat Clear Calc 46.32 L, Est GFR (MDRD) Non-Af 89, BUN/Creatinine Ratio 9.5 L, Glucose 159 H, Calcium 8.5, Phosphorus 1.4 L*, Magnesium 1.9 12/20/24 05:50: POC Glucose 157 H Micro: Microbiology 12/18/24 16:25 Mucosa - Nose SARS-CoV-2, Influenza & RSV (PCR) - Final ABG Data ABG results: ABG 12/20/24 03:20 Specimen Type ART Sample Site R Radial pH 7.43 Bicarbonate Actual 18.7 L Total CO2 20 Base Excess -6 L O2 Saturation 96 O2 % 2.0 ABG pCO2 28.1 L ABG pO2 75 Damaso Test Positive O2 Delivery Device Cannula Vent Mode Not entered Radiography Diagnostic Testing: Radiology Impression Chest X-Ray 12/20/24 02:40 IMPRESSION: No evidence of acute disease. Reading Location: [facility] Physical Exam Narrative GENERAL: cooperative HEENT: Atraumatic; normocephalic EYES; Anicteric, Normal Conjunctiva NECK; supple, normal thyroid, RESPIRATORY: Diminished to auscultation CARDIOVASCULAR: Regular S1 S2, GI: soft, normoactive bowel sounds, RLQ tenderness : No Renal angle tenderness; EXTREMITIES: No edema, no clubbing, MUSCULOSKELETAL: no muscle wasting NEURO: Awake; no lateralizing signs. SKIN: No Rash PSYCH; Flat affect Assessment & Plan Assessment/Plan (1) Fever: (2) Sigmoid diverticulitis: PLAN: Plan Patient is an 79-year-old female who presented with fever abdominal problems and nausea and vomiting. CT of the abdomen and pelvis obtained on admission demonstrated acute sigmoid diverticulitis. Admitted to regular nursing floor where patient is currently being managed 1. Acute sigmoid diverticulitis ? Patient admitted to regular nursing floor started on antibiotic therapy initially meropenem switched to Cipro and Flagyl. Managed on clear liquid and advance as tolerated. Patient continues to spike fever and still is tachycardic. 2. Acute respiratory insufficiency with mild hypoxia. Fluid overload ? Decrease patient IV fluid did receive Lasix. Chest x-ray obtained was nondiagnostic. Patient was placed on supplemental oxygen and use of incentive spirometry encouraged 3. Hypophosphatemia ? Corrected per protocol 4. Physical deconditioning ? Requested for PT OT eval and social sciences department chair to assist with discharge planning 5. Hyponatremia ? Mild we will continue to monitor 6. DVT prophylaxis ? Subcu heparin Time spent in the patient's overall evaluation,decision-making process, review of diagnostic data, adjustment of management, discussion with other providers, nursing nursing and ancillary staff involved in patient's care documentation, 38 Minutes Charges/Coding Visit Charges Inpatient E&M: 10138 Subs Hosp L2
[2024-12-20] MEDS: Meropenem 1 GM in 0.9% Normal Saline (100mL MB+) 100 ML IV ×2 (10:54→21:41)
[2024-12-20] MEDS: Furosemide 40 MG/4 ML Vial IV (11:07)
[2024-12-20] MEDS: Acetaminophen 325 MG Tablet 650 MG PO ×2 (11:11→18:12)
[2024-12-20 11:51] LABS: D-Dimer Quantitative (DVT/PE) 9.23 FEU/ug/m (0.27-0.49)
--- NOTE | 2024-12-20 11:52 | CT_ITS ---
PROCEDURE: CTA CHEST W/WO CONTRAST 12/20/2024 REASON FOR EXAM: ELEVATED D-DIMER TECHNIQUE: CTA axial imaging of the chest with intravenous contrast. Coronal and Sagittal reconstruction series were provided. 3D, 3D post processing, 3D reconstructions, Maximum intensity projection (MIPs) Volume rendering and Shaded surface rendering was provided. PATIENT PREPARATION: Per protocol One or more dose reduction techniques were used (e.g., Automated exposure control, adjustment of the mA and/or kV according to patient size, use of iterative reconstruction technique). CONTRAST: Isovue 370 VOLUME: 100 mL RADIATION DOSE SUMMARY: CTDlvol: 6.5 mGy DLP: 182.25 mGycm COMPARISON: Comparison is made with prior chest radiograph done earlier in the day. FINDINGS: Hardware: None Lymph nodes: Unremarkable Heart: Unremarkable RV/LV Diameter Ratio: 1 Thoracic Aorta: No thoracic aortic aneurysm or dissection. Pulmonary Vessels: No evidence of acute pulmonary emboli through the major subsegmental branches. Lungs and Airways: Small bilateral pleural effusions with bibasilar atelectasis/infiltrates worse at the right lung base. Upper Abdomen: There is hyperplasia of the right adrenal gland. Diffuse fatty infiltration of the liver. Bones: Degenerative changes of the thoracic spine. CT/CTA Chest W/WO Contrast IMPRESSION: No evidence of pulmonary embolism. Small bilateral pleural effusions slightly worse at the right lung base with bi basilar atelectasis and/or infiltrates worse on the right side. Reading Location: [place] [id number]
--- NOTE | 2024-12-20 11:53 | VDLE_ITS ---
Reason For Study Reason For Study: Elevated D-dimer RIGHT LEFT GSV is normal. GSV is normal. CFV is compressible, spontaneous, phasic, competent CFV is compressible, spontaneous, phasic, competent, and demonstrates normal augmentation. and demonstrates normal augmentation. FV is compressible, spontaneous, phasic, competent FV is compressible, spontaneous, phasic, competent and demonstrates normal augmentation. and demonstrates normal augmentation. POP V is compressible, spontaneous, phasic, competent POP V is compressible, spontaneous, phasic, competent and demonstrates normal augmentation. and demonstrates normal augmentation. T/P Trunk is compressible. T/P Trunk is compressible. PTV is compressible. PTV is compressible. RT PerV is compressible. LT PerV is compressible. Procedure This is a venous duplex using B-mode, color flow and spectral Doppler. Exam performed portable in patient room. A preliminary report was called and/or faxed to Maryellen TIRADO. VL/Venous Duplex US - Sanjeev Extrem Interpretation Summary Deep veins of the bilateral lower extremities are patent and compressible segme ntally. There is no evidence of bilateral lower extremity deep vein thrombosis. The bilateral great saphenous veins appea r patent and compressible segmentally. Ordering Physician: Jose Lopez Performed By: Cathleen Shelton RVT
[2024-12-20] MEDS: Na Biphos/Potassium Phosphate PACKET 1 PACKET PO ×2 (12:01→21:41)
[2024-12-20] MEDS: Insulin Lispro 100 UNIT/ML INSULN.PEN SC ×2 (12:07→17:59)
[2024-12-20 12:22] LABS: Bedside Glucose 159 mg/dL (74-106)
--- NOTE | 2024-12-20 12:45 | CASEMGMT ---
CELESTINO JESSICA Assessment Face to Face with patient for initial transition planning/care coordination assessment. CELESTINO JESSICA introduced self and role at [facility], pt voices understanding. Pt is A&Ox4 and is resting comfortably in bed and is calm. Pt son at bedside. Pt states that she is visiting from [place] and plans to return in May. Care providers, pharmacy, and demographics verified. Admitting dx: Diverticulitis LACE Strata: 1 PCP: All of pt's doctors are in [place]. Pt denies wanting to get established while visiting. Pt son also denies the provider list Preferred Pharmacy: [facility] Insurance: [facility] [employer] Prescription Benefit: Yes LNOK: Dontrell (Son) Living Arrangements: Pt is currently living at her son and DIL's [facility] Pt states that there is a flight of steps to manage but she denies issues ADLs/IADLs: States independent. PT is pending. Transportation: Pt son. Denies concerns DME: Pt was previously on oxygen and may qualify for home oxygen use. Pt is also requesting a FWW at the time of DC. This CELESTINO JESSICA contacted [facility] [employer] Liaison who states that [employer] is in network with the pt's insurance. Pt and pt son decline wanting to review a list of other local in-network DME companies and prefer [employer] at this time. HHC/SNF: Denies Hx or needs Pt?s goal: Home Plan: Home with pt son and DIL and a FWW. Follow for oxygen needs. Pt states that she feels safe returning to her son's home with her son and DIL once medically ready and declines any OP therapy needs at this time. However, PT is ordered and pending. Current 6-Click score is 21. Pt and pt son deny further questions or concerns at this time. Report given to UMBERTO TIRADO CM. Walter Woodall RN, CM
--- NOTE | 2024-12-20 14:42 | CASEMGMT ---
Referral sent to [facility] via careport to confirm they can take pt insurance. It is confirmed that they can. Complete referral sent for FWW per pt request with anticipated dc date of tomorrow.
[2024-12-20 15:56] LABS: Phosphorus 3.8 mg/dL (2.7-4.5)
[2024-12-20 16:00] LABS: Pro- Brain NATRIURETIC PEPTIDE 1302 pg/mL (<=1800)
[2024-12-20 18:19] LABS: Bedside Glucose 167 mg/dL (74-106)
[2024-12-20] MEDS: 0.9% Saline Lock 10 ML Syringe IV (21:41)
[2024-12-20 23:44] LABS: Bedside Glucose 191 mg/dL (74-106)
[2024-12-21 02:15] VITALS: BP 145/76; PULSE 104; RESP 18; TEMP 37.2; O2SAT 98
[2024-12-21 06:20] VITALS: BP 138/58; PULSE 101; RESP 18; TEMP 37.3; O2SAT 95
[2024-12-21 06:53] LABS: Bedside Glucose 170 mg/dL (74-106)
[2024-12-21 07:03] LABS: Absolute Lymphocyte Count 1.29 X10^3/uL (0.83-4.51); Absolute Neutrophil Count 8.9 X10^3/uL (2.0-7.7); Basophil# 0.03 X10^3/uL; Basophil% 0.3 % (0-1); Eosinophil# 0.05 X10^3/uL; Eosinophils% 0.5 % (0-5); Hematocrit 33.8 % (37-47); Hemoglobin 11.8 g/dL (12.0-15.0); Lymphocyte # 1.29 X10^3/ul (0.83-4.51); Lymphocyte % 11.9 % (19-41); Mean Corp Hgb Conc 34.9 g/dL (32-36); Mean Corpuscular Hgb 25.5 pg (27.0-32.0); Mean Corpuscular Volume 73.2 fL (81-99); Mean Platelet Vol. 9.2 fl (6.2-12.0); Monocyte# 0.56 X10^3/uL; Monocyte% 5.2 % (0-10); NRBC Flagged by Analyzer 0 % (0-5); Neutrophil # 8.88 X10^3/uL (2.7-7.7); Neutrophil % 81.5 % (47-70); Platelet Count 251 K/mm3 (150-450); RBC Distribution Width SD 37.1 fl (35.1-43.9); Red Blood Count 4.62 M/mm3 (4.2-5.4); White Blood Count 10.9 K/mm3 (4.4-11.0)
--- NOTE | 2024-12-21 07:36 | PN.HOSP_ITS ---
Reason for Visit Reason for Visit: Diagnoses Diverticulitis of large intestine without perforation or abscess without bleeding (12/18/24) Fever, unspecified (12/18/24) Subjective Subjective Patient seen. Continues to spike fever, Temperature maximum over the past 24 hours 102.7.Patient had an episode of loose bowel movement the day prior; stool studies ordered. Ordered CTA of the chest on account of hypoxia and persistent tachycardia was negative for PE patient was however found to have questionable infiltrate and bilateral atelectasis Objective Data Objective Data Vital Signs: Vital Signs Temp Pulse Resp BP Pulse Ox O2 Del Method O2 Flow Rate 99.1 F 101 H 18 138/58 H 95 Room Air 2 12/21/24 06:20 12/21/24 06:20 12/21/24 06:20 12/21/24 06:20 12/21/24 06:20 12/21/24 06:20 12/20/24 02:00 Oxygen Flow Rate (L/min) 2 Oxygen Delivery Method Room Air Weight: 61.3 kg Body Mass Index (BMI) 25.5 Intake & Output: Intake and Output for Last 24 Hours 12/19/24 12/20/24 12/21/24 23:59 23:59 23:59 Intake Total 3501.25 / 3501.25 1048.3333 / 1048.3333 120 / 120 Balance 3501.25 / 3501.25 1048.3333 / 1048.3333 120 / 120 Lab / Micro Data 12/21/24 06:47 12/21/24 06:47 Labs: Laboratory Results - last 24 hr 12/20/24 11:07: D-Dimer Quant (PE/DVT) 9.23 H* 12/20/24 12:03: POC Glucose 159 H 12/20/24 15:00: Phosphorus 3.8, NT pro BNP II 1302 12/20/24 17:58: POC Glucose 167 H 12/20/24 23:22: POC Glucose 191 H 12/21/24 06:22: POC Glucose 170 H 12/21/24 06:47: WBC 10.9, RBC 4.62, Hgb 11.8 L, Hct 33.8 L, MCV 73.2 L, MCH 25.5 L, MCHC 34.9, RDW Std Deviation 37.1, RDW Coeff of Farzaneh 14.0, Plt Count 251, MPV 9.2, Immature Gran % (Auto) 0.600, Neut % (Auto) 81.5 H, Lymph % (Auto) 11.9 L, [place] % (Auto) 5.2, Eos % (Auto) 0.5, Baso % (Auto) 0.3, Absolute Neuts (auto) 8.9 H, Absolute Lymphs (auto) 1.29, Nucleated RBC % 0 Micro: Microbiology 12/18/24 16:25 Mucosa - Nose SARS-CoV-2, Influenza & RSV (PCR) - Final Radiography Diagnostic Testing: Radiology Impression Chest CTA 12/20/24 11:52 IMPRESSION: No evidence of pulmonary embolism. Small bilateral pleural effusions slightly worse at the right lung base with bibasilar atelectasis and/or infiltrates worse on the right side. Reading Location: [facility] Venous Doppler Study 12/20/24 11:53 Interpretation Summary Deep veins of the bilateral lower extremities are patent and compressible segmentally. There is no evidence of bilateral lower extremity deep vein thrombosis. The bilateral great saphenous veins appear patent and compressible segmentally. Ordering Physician: Jose Lopez Performed By: Cathleen Shelton RVT Physical Exam Narrative GENERAL: cooperative HEENT: Atraumatic; normocephalic EYES; Anicteric, Normal Conjunctiva NECK; supple, normal thyroid, RESPIRATORY: Diminished to auscultation CARDIOVASCULAR: Regular S1 S2, GI: soft, normoactive bowel sounds, RLQ tenderness : No Renal angle tenderness; EXTREMITIES: No edema, no clubbing, MUSCULOSKELETAL: no muscle wasting NEURO: Awake; no lateralizing signs. SKIN: No Rash PSYCH; Flat affect Assessment & Plan Assessment/Plan (1) Fever: (2) Sigmoid diverticulitis: PLAN: Plan Patient is an 79-year-old female who presented with fever abdominal problems and nausea and vomiting. CT of the abdomen and pelvis obtained on admission demonstrated acute sigmoid diverticulitis. Admitted to regular nursing floor where patient is currently being managed 1. Acute sigmoid diverticulitis ? Patient admitted to regular nursing floor started on antibiotic therapy meropenem . Managed on clear liquid and advance as tolerated. Patient continues to spike fever and still is tachycardic. ? 12/21/2024; patient had bouts of loose bowel movement the day prior. Requested for stool for C. difficile as well as enteric pathogen panel subsequently placed under enteric precautions. Did switch around antibiotic therapy starting this a.m. with discontinuation of meropenem and initiation of metronidazole and Levaquin. Patient continues to experience tachycardia as well as low-grade fever 2. Acute respiratory insufficiency with mild hypoxia. Fluid overload ? Decrease patient IV fluid did receive Lasix. Chest x-ray obtained was nondiagnostic. Patient was placed on supplemental oxygen and use of incentive spirometry encouraged ? 12/21/2024;Small bilateral pleural effusions slightly worse at the right lung base with bibasilar atelectasis and/or infiltrates worse on the right side. 4. Persistent fever ? Corrected to be related to patient acute sigmoid diverticulitis however ordered repeat blood cultures as well as stool for enteric pathogen 3. Hypophosphatemia ? Corrected per protocol ? 12/21/2024; patient phosphate level remains low additional replacement given 4. Physical deconditioning ? Requested for PT OT eval and psych social worker to assist with discharge planning 5. Hyponatremia ? Mild we will continue to monitor ? 12/21/2024; sodium level down to 127 we will continue with monitoring 6. DVT prophylaxis ? Subcu heparin 7. Physical deconditioning ? Requested for PT OT eval and psych social worker to assist with discharge planning Updated patient's family?daughter in law who was in the room Charges/Coding Visit Charges Inpatient E&M: 15975 Subs Hosp L3
[2024-12-21 07:45] LABS: Anion Gap 14 (5-15); BUN 8 mg/dL (4-19); BUN/Creat Ratio 14.8 RATIO (10-20); Calcium,Total 8.5 mg/dL (7.6-11.0); Carbon Dioxide 18.9 mmol/L (21.0-32.0); Chloride 94 mmol/L (98-108); Creatinine, Serum 0.55 mg/dL (0.70-1.20); EST Glomerular Filtration Rate 92 (>60); Estimated Creatinine Clearance 46.32 ml/min (50-250); Glucose 165 mg/dL (70-99); Magnesium 1.9 mg/dL (1.5-2.2); Phosphorus 1.8 mg/dL (2.7-4.5); Potassium 3.6 mmol/L (3.3-5.1); Sodium Level 127 mmol/L (133-145)
[2024-12-21] MEDS: metroNIDAZOLE 500 MG/100 ML BAG 100 MG IV ×4 (08:29→23:41)
[2024-12-21 08:36] VITALS: BP 144/85; PULSE 104; RESP 18; TEMP 38.5; O2SAT 94
[2024-12-21] MEDS: Na Biphos/Potassium Phosphate PACKET 1 PACKET PO ×2 (08:44→21:16)
[2024-12-21] MEDS: Acetaminophen 325 MG Tablet 650 MG PO (08:44)
[2024-12-21] MEDS: Heparin Injection (Vial) 5,000 UNIT/ML VIAL 5000 UNIT SC ×2 (08:45→21:16)
[2024-12-21] MEDS: levoFLOXacin IV 500 MG/100 ML BAG 100 MG IV (09:43)
[2024-12-21] MEDS: amLODIPine 5 MG Tablet PO (10:51)
[2024-12-21] MEDS: Insulin Lispro 100 UNIT/ML INSULN.PEN SC ×3 (11:57→23:39)
[2024-12-21 12:40] LABS: Bedside Glucose 208 mg/dL (74-106)
[2024-12-21 15:20] VITALS: BP 119/77; PULSE 99; RESP 18; TEMP 37.5; O2SAT 95
[2024-12-21 17:46] LABS: Bedside Glucose 193 mg/dL (74-106)
[2024-12-21 20:00] VITALS: BP 138/69; PULSE 104; RESP 16; TEMP 37.5; O2SAT 95
[2024-12-21 21:20] VITALS: TEMP 37.4
[2024-12-22] VITALS: TEMP 37.2
[2024-12-22 00:01] LABS: Bedside Glucose 202 mg/dL (74-106)
[2024-12-22 02:00] VITALS: BP 143/87; PULSE 96; RESP 16; TEMP 37.2; O2SAT 96
[2024-12-22 05:09] LABS: Absolute Lymphocyte Count 1.24 X10^3/uL (0.83-4.51); Absolute Neutrophil Count 7.1 X10^3/uL (2.0-7.7); Basophil# 0.03 X10^3/uL; Basophil% 0.3 % (0-1); Eosinophil# 0.15 X10^3/uL; Eosinophils% 1.6 % (0-5); Hematocrit 32.5 % (37-47); Hemoglobin 11.2 g/dL (12.0-15.0); Lymphocyte # 1.24 X10^3/ul (0.83-4.51); Lymphocyte % 13.3 % (19-41); Mean Corp Hgb Conc 34.5 g/dL (32-36); Mean Corpuscular Hgb 25.1 pg (27.0-32.0); Mean Corpuscular Volume 72.9 fL (81-99); Mean Platelet Vol. 9.3 fl (6.2-12.0); Monocyte# 0.74 X10^3/uL; Monocyte% 7.9 % (0-10); NRBC Flagged by Analyzer 0 % (0-5); Neutrophil # 7.14 X10^3/uL (2.7-7.7); Neutrophil % 76.4 % (47-70); Platelet Count 249 K/mm3 (150-450); RBC Distribution Width SD 37.2 fl (35.1-43.9); Red Blood Count 4.46 M/mm3 (4.2-5.4); White Blood Count 9.4 K/mm3 (4.4-11.0)
[2024-12-22 05:42] LABS: Anion Gap 13 (5-15); BUN 8 mg/dL (4-19); BUN/Creat Ratio 16.4 RATIO (10-20); Calcium,Total 8.5 mg/dL (7.6-11.0); Carbon Dioxide 19.3 mmol/L (21.0-32.0); Chloride 98 mmol/L (98-108); Creatinine, Serum 0.47 mg/dL (0.70-1.20); EST Glomerular Filtration Rate 95 (>60); Estimated Creatinine Clearance 46.32 ml/min (50-250); Glucose 152 mg/dL (70-99); Potassium 3.7 mmol/L (3.3-5.1); Sodium Level 130 mmol/L (133-145)
[2024-12-22] MEDS: metroNIDAZOLE 500 MG/100 ML BAG 100 MG IV ×2 (06:06→11:59)
[2024-12-22 06:26] LABS: Bedside Glucose 154 mg/dL (74-106)
--- NOTE | 2024-12-22 07:54 | PN.HOSP_ITS ---
Reason for Visit Reason for Visit: Diagnoses Diverticulitis of large intestine without perforation or abscess without bleeding (12/18/24) Fever, unspecified (12/18/24) Objective Data Objective Data Vital Signs: Vital Signs Temp Pulse Resp BP Pulse Ox O2 Del Method O2 Flow Rate 98.9 F 96 16 143/87 H 96 Room Air 2 12/22/24 02:00 12/22/24 02:00 12/22/24 02:00 12/22/24 02:00 12/22/24 02:00 12/22/24 02:00 12/20/24 02:00 Oxygen Flow Rate (L/min) 2 Oxygen Delivery Method Room Air Weight: 61.3 kg Body Mass Index (BMI) 25.5 Intake & Output: Intake and Output for Last 24 Hours 12/20/24 12/21/24 12/22/24 23:59 23:59 23:59 Intake Total 1048.3333 / 1048.3333 620 / 620 100 / 100 Output Total 250 / 250 450 / 450 Balance 1048.3333 / 1048.3333 370 / 370 -350 / -350 Lab / Micro Data 12/22/24 04:43 12/22/24 04:43 Labs: Laboratory Results - last 24 hr 12/21/24 11:56: POC Glucose 208 H 12/21/24 17:22: POC Glucose 193 H 12/21/24 23:38: POC Glucose 202 H 12/22/24 04:43: WBC 9.4, RBC 4.46, Hgb 11.2 L, Hct 32.5 L, MCV 72.9 L, MCH 25.1 L, MCHC 34.5, RDW Std Deviation 37.2, RDW Coeff of Farzaneh 14.0, Plt Count 249, MPV 9.3, Immature Gran % (Auto) 0.500, Neut % (Auto) 76.4 H, Lymph % (Auto) 13.3 L, Walsh % (Auto) 7.9, Eos % (Auto) 1.6, Baso % (Auto) 0.3, Absolute Neuts (auto) 7.1, Absolute Lymphs (auto) 1.24, Nucleated RBC % 0, Sodium 130 L, Potassium 3.7, Chloride 98, Carbon Dioxide 19.3 L, Anion Gap 13, BUN 8, Creatinine 0.47 L, Estim Creat Clear Calc 46.32 L, Est GFR (MDRD) Non-Af 95, BUN/Creatinine Ratio 16.4, Glucose 152 H, Calcium 8.5 12/22/24 06:05: POC Glucose 154 H Micro: Microbiology 12/21/24 13:10 Mucosa - Nose Coronavirus COVID-19 PCR - Final 12/21/24 13:10 Mucosa - Nasopharyngeal Respiratory Panel (PCR) - Final 12/18/24 16:37 Blood Culture (Wb) - Anticubital Left Blood Culture - Preliminary No growth in 48 hours. 12/18/24 17:15 Blood Culture (Wb) - Right Wrist Blood Culture - Preliminary No growth in 48 hours. 12/18/24 16:25 Mucosa - Nose SARS-CoV-2, Influenza & RSV (PCR) - Final Physical Exam Narrative GENERAL: cooperative HEENT: Atraumatic; normocephalic EYES; Anicteric, Normal Conjunctiva NECK; supple, normal thyroid, RESPIRATORY: Diminished to auscultation CARDIOVASCULAR: Regular S1 S2, GI: soft, normoactive bowel sounds, RLQ tenderness : No Renal angle tenderness; EXTREMITIES: No edema, no clubbing, MUSCULOSKELETAL: no muscle wasting NEURO: Awake; no lateralizing signs. SKIN: No Rash PSYCH; Flat affect Assessment & Plan Assessment/Plan (1) Fever: (2) Sigmoid diverticulitis: PLAN: Plan Patient is an 79-year-old female who presented with fever abdominal problems and nausea and vomiting. CT of the abdomen and pelvis obtained on admission demonstrated acute sigmoid diverticulitis. Admitted to regular nursing floor where patient is currently being managed 1. Acute sigmoid diverticulitis ? Patient admitted to regular nursing floor started on antibiotic therapy meropenem . Managed on clear liquid and advance as tolerated. Patient continues to spike fever and still is tachycardic. ? 12/21/2024; patient had bouts of loose bowel movement the day prior. Requested for stool for C. difficile as well as enteric pathogen panel subsequently placed under enteric precautions. Did switch around antibiotic therapy starting this a.m. with discontinuation of meropenem and initiation of metronidazole and Levaquin. Patient continues to experience tachycardia as well as low-grade fever 2. Acute respiratory insufficiency with mild hypoxia. Fluid overload ? Decrease patient IV fluid did receive Lasix. Chest x-ray obtained was nondiagnostic. Patient was placed on supplemental oxygen and use of incentive spirometry encouraged ? 12/21/2024;Small bilateral pleural effusions slightly worse at the right lung base with bibasilar atelectasis and/or infiltrates worse on the right side. 4. Persistent fever ? Corrected to be related to patient acute sigmoid diverticulitis however ordered repeat blood cultures as well as stool for enteric pathogen 3. Hypophosphatemia ? Corrected per protocol ? 12/21/2024; patient phosphate level remains low additional replacement given 4. Physical deconditioning ? Requested for PT OT eval and web content & social media manager to assist with discharge planning 5. Hyponatremia ? Mild we will continue to monitor ? 12/21/2024; sodium level down to 127 we will continue with monitoring 6. DVT prophylaxis ? Subcu heparin 7. Physical deconditioning ? Requested for PT OT eval and web content & social media manager to assist with discharge planning Updated patient's family?daughter in law who was in the room
--- NOTE | 2024-12-22 09:02 | PCM.DC.SUM ---
Providers Date of Admission: 12/18/24 Date of Discharge: 12/22/24 Primary Care Physician: No Primary Care Phys Reason For Visit: ACUTE SIGMOID DIVERTICULITIS Diagnosis Discharge Diagnosis (1) Fever: Status: Acute Code(s): R50.9 - Fever, unspecified (2) Sigmoid diverticulitis: Status: Acute Code(s): K57.32 - Diverticulitis of large intestine without perforation or abscess without bleeding Plan Patient is an 79-year-old female who presented with fever abdominal problems and nausea and vomiting. CT of the abdomen and pelvis obtained on admission demonstrated acute sigmoid diverticulitis. Admitted to regular nursing floor where patient is currently being managed 1. Acute sigmoid diverticulitis ? Patient admitted to regular nursing floor started on antibiotic therapy meropenem . Managed on clear liquid and advance as tolerated. Patient continues to spike fever and still is tachycardic. ? 12/21/2024; patient had bouts of loose bowel movement the day prior. Requested for stool for C. difficile as well as enteric pathogen panel subsequently placed under enteric precautions. Did switch around antibiotic therapy starting this a.m. with discontinuation of meropenem and initiation of metronidazole and Levaquin. Patient continues to experience tachycardia as well as low-grade fever ? 12/22/2024; significant improvement in patient overall clinical condition plan is for patient to be assessed for discharge home. 2. Acute respiratory insufficiency with mild hypoxia. Fluid overload ? Decrease patient IV fluid did receive Lasix. Chest x-ray obtained was nondiagnostic. Patient was placed on supplemental oxygen and use of incentive spirometry encouraged ? 12/21/2024;Small bilateral pleural effusions slightly worse at the right lung base with bibasilar atelectasis and/or infiltrates worse on the right side. 4. Persistent fever ? Corrected to be related to patient acute sigmoid diverticulitis however ordered repeat blood cultures as well as stool for enteric pathogen 3. Hypophosphatemia ? Corrected per protocol ? 12/21/2024; patient phosphate level remains low additional replacement given 4. Physical deconditioning ? Requested for PT OT eval and social psychologist to assist with discharge planning 5. Hyponatremia ? Mild we will continue to monitor ? 12/21/2024; sodium level down to 127 we will continue with monitoring 6. DVT prophylaxis ? Subcu heparin 7. Physical deconditioning ? Requested for PT OT eval and social psychologist to assist with discharge planning Updated patient's family?daughter in law who was in the room Medications at Discharge Home Medications acetaminophen 325 mg tablet 650 mg (2 x 325 mg) PO Q6H PRN PRN Pain 1-10 Or Fever >100.7 #0 tabs 12/22/24 amlodipine 5 mg tablet 5 mg PO DAILY #60 tabs 12/22/24 levofloxacin 500 mg tablet 500 mg PO DAILY #7 tabs 12/22/24 metronidazole 500 mg tablet 500 mg PO TID #21 tabs 12/22/24 potassium, sodium phosphates 280 mg-160 mg-250 mg oral powder packet 1 packet PO BID #14 ea 12/22/24 Physical Exam Narrative GENERAL: cooperative HEENT: Atraumatic; normocephalic EYES; Anicteric, Normal Conjunctiva NECK; supple, normal thyroid, RESPIRATORY: Diminished to auscultation CARDIOVASCULAR: Regular S1 S2, GI: soft, normoactive bowel sounds, : No Renal angle tenderness; EXTREMITIES: No edema, no clubbing, MUSCULOSKELETAL: no muscle wasting NEURO: Awake; no lateralizing signs. SKIN: No Rash PSYCH; Flat affect Weight / BMI Weight Weight: 61.3 kg Body Mass Index (BMI) 25.5 ABG / Lab / Microbiology Data 12/22/24 04:43 12/22/24 04:43 Laboratory: Laboratory Results - last 24 hr 12/21/24 11:56: POC Glucose 208 H 12/21/24 17:22: POC Glucose 193 H 12/21/24 23:38: POC Glucose 202 H 12/22/24 04:43: WBC 9.4, RBC 4.46, Hgb 11.2 L, Hct 32.5 L, MCV 72.9 L, MCH 25.1 L, MCHC 34.5, RDW Std Deviation 37.2, RDW Coeff of Farzaneh 14.0, Plt Count 249, MPV 9.3, Immature Gran % (Auto) 0.500, Neut % (Auto) 76.4 H, Lymph % (Auto) 13.3 L, Starke % (Auto) 7.9, Eos % (Auto) 1.6, Baso % (Auto) 0.3, Absolute Neuts (auto) 7.1, Absolute Lymphs (auto) 1.24, Nucleated RBC % 0, Sodium 130 L, Potassium 3.7, Chloride 98, Carbon Dioxide 19.3 L, Anion Gap 13, BUN 8, Creatinine 0.47 L, Estim Creat Clear Calc 46.32 L, Est GFR (MDRD) Non-Af 95, BUN/Creatinine Ratio 16.4, Glucose 152 H, Calcium 8.5 12/22/24 06:05: POC Glucose 154 H Microbiology: Microbiology 12/21/24 13:10 Mucosa - Nose Coronavirus COVID-19 PCR - Final 12/21/24 13:10 Mucosa - Nasopharyngeal Respiratory Panel (PCR) - Final 12/18/24 16:37 Blood Culture (Wb) - Anticubital Left Blood Culture - Preliminary No growth in 48 hours. 12/18/24 17:15 Blood Culture (Wb) - Right Wrist Blood Culture - Preliminary No growth in 48 hours. 12/18/24 16:25 Mucosa - Nose SARS-CoV-2, Influenza & RSV (PCR) - Final D/C Instructions Discharge Diet: No restrictions Discharge Activity: Return to Normal Activity Call your doctor if you observe: Fever of 101 or Higher, Shortness of breath, Fainting spells and Chest pain DC O2, CPAP, BIPAP Needs Home O2 Discharge instructions: No Meaningful Use Info Meaningful Use Meaningful Use Diagnoses (Choose all that apply): None applicable Ischemic Stroke Statin Dosing Therapy Reference: STATIN DOSE THERAPY REFERENCE: * Patients > 75 years receive moderate or high dose statin therapy. * Patients 75 years or YOUNGER should receive HIGH intensity statin dose unless contraindicated. You will be required to document reason for non-treatment if statin daily dose does not meet guidelines. HIGH DOSE STATIN THERAPY DAILY Atorvastatin > than or = to 40 mg Rosuvastatin > than or = to 20 mg Amlodipine + Atorvastatin > than or = to 2.5/40 mg Ezetimibe + Simvastatin 10/80 mg Simvastatin 80mg Discharge Plan Admission Admit Date/Time: 12/18/24 18:33 Attending Provider: Jose Lopez Primary Care Provider: Care Physician,No Primary Consulting Providers: Jamie Coronel; Mehreen Paul Discharge Orders/Prescriptions Prescriptions: New acetaminophen 325 mg Tablet 650 mg PO Q6H PRN PRN (Reason: Pain 1-10 Or Fever >100.7) Qty: 0 0RF amlodipine 5 mg Tablet 5 mg PO DAILY Qty: 60 0RF metronidazole 500 mg tablet 500 mg PO TID Qty: 21 0RF levofloxacin 500 mg tablet 500 mg PO DAILY Qty: 7 0RF potassium, sodium phosphates 280-160-250 mg Powder In Packet 1 packet PO BID Qty: 14 0RF Referrals / Follow Up: Care Physician,No Primary [Primary Care Provider] - Within 2 Weeks [facility] Doctor,Out of [Non-Staff] - Disposition Disposition (needs filled in before D/C Order can be placed): Home, Self Care Charges/Coding Visit Charges Inpatient E&M: 86635 Disch Hosp >30min
[2024-12-22 09:15] VITALS: BP 139/79; PULSE 94; RESP 18; TEMP 37.2; O2SAT 96
--- NOTE | 2024-12-22 09:58 | CASEMGMT ---
CELESTINO CM into pt room, pt lying in bed with family member at bedside. Pt denies any homegoing needs. Pt and family member deny need for any home nursing or therapy. Pt family member on the phone with [facility] as she is hiring a private cg for s/t. Pt walker has been delivered to the home. Pt and family member deny any further needs at this time.
[2024-12-22] MEDS: amLODIPine 5 MG Tablet PO (10:18)
[2024-12-22] MEDS: Heparin Injection (Vial) 5,000 UNIT/ML VIAL 5000 UNIT SC (10:18)
[2024-12-22] MEDS: levoFLOXacin IV 250 MG/50 ML BAG 50 MG IV (10:18)
[2024-12-22] MEDS: Na Biphos/Potassium Phosphate PACKET 1 PACKET PO (10:18)
--- NOTE | 2024-12-22 10:42 | PHA.DC_ITS ---
Pharmacy [facility] has performed discharge medication reconciliation and counseling for this patient. 1. Amlodipine 5mg PO daily 2. Levofloxacin 500mg PO daily x 7 days 3. Metronidazole 500mg PO TID x 7 days 4. Neutra-Phos 1packet PO BID x 7 days The patient's discharge medication list was reviewed for discrepancies and discrepancies were resolved. The patient was counseled on the following discharge medications and changes in medications for homegoing were reviewed. The Reason for Use, instructions for use, and potential side effects were reviewed for all new medications. The patient's questions regarding all of their medications were answered. The patient was able to verbally demonstrate an understanding of their discharge medications. Patient counseled by retail pharmacy merchandiser, Tristan. Medications at Discharge Home Medications acetaminophen 325 mg tablet 650 mg (2 x 325 mg) PO Q6H PRN PRN Pain 1-10 Or Fever >100.7 #0 tabs 12/22/24 amlodipine 5 mg tablet 5 mg PO DAILY #60 tabs 12/22/24 levofloxacin 500 mg tablet 500 mg PO DAILY #7 tabs 12/22/24 metronidazole 500 mg tablet 500 mg PO TID #21 tabs 12/22/24 potassium, sodium phosphates 280 mg-160 mg-250 mg oral powder packet 1 packet PO BID #14 ea 12/22/24
[2024-12-22] MEDS: Insulin Lispro 100 UNIT/ML INSULN.PEN SC (11:59)
[2024-12-22 12:21] LABS: Bedside Glucose 200 mg/dL (74-106)
[2024-12-22 13:02] VITALS: BP 134/74; PULSE 94; RESP 18; TEMP 37.2; O2SAT 18
== END 2024-12-22 13:29 | disposition home or self-care (01) | DRG 392 ==
LOC: ED 17:13 → MS3 18:49
PROVIDERS: Internal Medicine; Physician Assistant; Admitting Provider Internal Medicine; Emergency Provider Surgery; Visit Provider Internal Medicine
DX: K57.32 Diverticulitis of large intestine without perforation or abscess without bleeding (principal); E87.1 Hypo-osmolality and hyponatremia; J98.11 Atelectasis; E83.39 Other disorders of phosphorus metabolism; D50.9 Iron deficiency anemia, unspecified; E87.70 Fluid overload, unspecified; R11.2 Nausea with vomiting, unspecified; R19.7 Diarrhea, unspecified; Z90.710 Acquired absence of both cervix and uterus; Z79.891 Long term (current) use of opiate analgesic; Z79.01 Long term (current) use of anticoagulants; R73.9 Hyperglycemia, unspecified; R09.02 Hypoxemia; Z98.890 Other specified postprocedural states; R53.81 Other malaise; R50.9 Fever, unspecified
CPT/HCPCS: 36415; 36600; 71045; 71275; 74177; 80048; 82803; 82962; 83036; 83735; 83880; 84100; 85025; 85379; 87040; 87633; 87635; 93970; 97162; 97530; 99284; J2185; Q9967; A4216; J1940; J2405